=== PATIENT | female | born 1955 | race Caucasian/White ===

== ENCOUNTER → 2017-11-08 10:18 | Outpatient (CLI) | payer OTHER, SELFPAY ==
[2017-11-08 10:58] LABS: Add Manual Diff / Slide Review NO; Basophils Percent Auto 0.7 % (0-2); Eosinophils Percent Auto 8.1 % (2-4); Hematocrit 38.5 % (36-46); Hemoglobin 13.1 g/dL (12.0-16.0); Lymphocytes Percent Auto 28.5 % (25-40); Mean Corpuscular HGB Conc 34.1 % (30-36); Mean Corpuscular Hemoglobin 28.9 PG (26-34); Mean Corpuscular Volume 84.9 fL (80-100); Neutrophils Absolute Auto 3900 /uL (3000-5900); Neutrophils Percent Auto 54.7 % (50-75); Platelet Count 290 X10^3/uL (150-400); Red Blood Cell Count 4.53 X10^6/uL (4.0-5.2); Red Cell Distribution Width 13.8 % (11.6-14.8); White Blood Cell Count 7.1 X10^3/uL (4.5-11.0)
[2017-11-08 11:19] LABS: Alanine Aminotransferase 33 IU/L (9-52); Albumin 4.4 g/dL (3.5-5.0); Albumin Globulin Ratio 1.4 (1.0-2.8); Alkaline Phosphatase 74 U/L (38-126); Aspartate Aminotransferase 33 IU/L (14-36); Bilirubin Total 0.5 mg/dL (0.2-1.3); Blood Urea Nitrogen 12 mg/dL (7-17); Calcium 9.7 mg/dL (8.4-10.2); Carbon Dioxide 30 mmol/L (22-32); Chloride 102 mmol/L (98-107); Cholesterol 195 mg/dL (140-199); Estimated Glomerular Filt Rate > 60.0 mL/min (>60); Globulin 3.1 g/dL (1.7-4.1); Glucose 99 mg/dL (80-110); HDL Cholesterol 79 mg/dL (40-60); HEMOLYSIS < 15 (0-50); LDL Cholesterol Calculated 104 mg/dL (<100); Potassium 3.8 mmol/L (3.4-5.1); Sodium 142 mmol/L (137-145); Total Protein 7.5 g/dL (6.3-8.2); Triglycerides 58 mg/dL (35-150)
[2017-11-08 11:31] LABS: Free T3, Triiodothyronine Free 4.57 pg/mL (2.77-5.27)
[2017-11-08 11:45] LABS: Thyroid Stimulating Hormone 2.32 uIU/mL (0.47-4.68)
[2017-11-08 12:02] LABS: Vitamin B12 > 1000 pg/mL (239-931)
== END ==
PROVIDERS: Family Provider Family Medicine; PCP Family Medicine; Visit Provider Family Medicine
DX: Z00.00 Encounter for general adult medical examination without abnormal findings (principal); E03.9 Hypothyroidism, unspecified; E04.1 Nontoxic single thyroid nodule; G35 Multiple sclerosis
CPT/HCPCS: 36415; 80053; 80061; 82306; 82607; 84439; 84443; 84481; 85025

== ENCOUNTER → 2017-12-06 11:38 | Outpatient (CLI) | payer OTHER, SELFPAY ==
--- NOTE | 2017-12-06 11:41 | DI.MG.S_ITS ---
BILATERAL DIGITAL SCREENING MAMMOGRAM 3D/2D WITH CAD: 12/06/2017 CLINICAL: Routine screening. Family history of breast cancer. Comparison is made to exams dated: 08/07/2016 mammogram, 07/26/2015 mammogram, and 12/04/2013 [facility]. The tissue of both breasts is predominantly fatty. Current study was also evaluated with a Computer Aided Detection (CAD) system. No significant masses, calcifications, or other findings are seen in either breast. There has been no significant interval change. IMPRESSION: NEGATIVE There is no mammographic evidence of malignancy. A 1 year screening mammogram is recommended. This exam was interpreted at Station ID: [id number]. NOTE: For mammograms, a report in lay terms will be sent to the patient. Approximately 15% of breast malignancies will not be visualized mammographically. In the management of a palpable breast mass, a negative mammogram must not discourage biopsy of a clinically suspicious lesion. Electronically Signed By: Greer vallecillo/pio:12/06/2017 15:21:25 letter sent: Normal Exam ACR BI-RADS Category 1: Negative 3341F
--- NOTE | 2017-12-06 11:41 | DI.US.S_ITS ---
PROCEDURE: US THYROID INDICATIONS: thyroid nodule, follow up TECHNIQUE: Real-time scanning was performed of the thyroid gland, with image documentation. COMPARISON: [facility], [place], THYROID, 07/26/2015, 16:24. FINDINGS: Right: Thyroid lobe measures 5.1 x 3.0 x 2.7 cm, and is homogeneous in echotexture. Left: Thyroid lobe measures 3.1 x 0.6 x 0.6 cm, and is homogenous in echotexture. Isthmus: 1.0 mm thick. Nodule number: 1 Location: Right thyroid Size: Unchanged in size measuring 3.1 x 2.8 x 2.5 cm. Composition: Predominantly cystic Echogenicity: Hypoechoic Shape: wider than tall. Margins: Smooth Echogenic foci: None Total points: 3 ACR TI-RADS category: Mildly suspicious IMPRESSION: No change in appearance of mildly suspicious right inferior thyroid nodule. ACR TI-RADS definitions and recommendations: TI-RADS 1 (benign): 0 points. FNA not needed. TI-RADS 2 (not suspicious): 2 points. FNA not needed. TI-RADS 3 (mildly suspicious): 3 points. * FNA if 2.5 cm or larger, follow up if 1.5 cm or larger (at 1, 3, and 5 years). TI-RADS 4 (moderately suspicious): 4-6 points. * FNA if 1.5 cm or larger, follow up if 1 cm or larger (at 1, 2, 3, and 5 years). TI-RADS 5 (highly suspicious): 7 points or more. * FNA if 1 cm or larger, follow up if 0.5 cm or larger (every year for 5 years). Dictated by: Alvarez TAPIA Interpreted: Sunny Kessler MD on 12/06/2017 at 12:57 Approved by: Sunny Kessler M.D. on 12/06/2017 at 13:32
--- NOTE | 2017-12-06 11:48 | DI.CT.S_ITS ---
PROCEDURE: CT CHEST WO CON INDICATIONS: 6mm lung nodule TECHNIQUE: Noncontrast 2.0-2.5 mm thick sections acquired from the pulmonary apices to the posterior costophrenic angles. 7 mm thick coronal and sagittal MIP reformats were then acquired. A low radiation dose technique was utilized. COMPARISON: [facility], , CT THORAX WITH CONTRAST, 04/22/2003, 10:50. [facility], , THYROID, 03/16/2011, 16:07. [facility], , THYROID, 11/20/2013, 14:50. [facility], [place], THYROID, 07/26/2015, 16:24. FINDINGS: Image quality: Diagnostic, given the low radiation dose technique. Lungs and pleura: There is a 6 mm in diameter nodule in the posterior aspect of the left lower lobe (series 2, image 46) which is not significantly changed in size compared to prior examination dated 04/22/2003. Mediastinum: Heart size is normal. No pericardial effusion. No mediastinal adenopathy by size criteria. Thoracic aorta and central pulmonary arteries are normal in size. Esophagus is normal in caliber. No hiatal hernia. Bones and chest wall: No suspicious bony lesions. No vertebral body compression fractures. Spine degenerative disc disease and facet arthropathy. No axillary or supraclavicular adenopathy by size criteria. Thyroid gland contains a 2.4 cm in maximum diameter hypoattenuating nodule in the right thyroid which is not significantly changed compared to prior thyroid ultrasounds.. Abdomen: Visualized upper abdomen solid organs and bowel loops appear normal in the absence of contrast. IMPRESSION: 1. 6 mm nodule in the left lower lobe not significantly changed compared to prior CT scan obtained 04/22/2003. 2. Large right thyroid nodule not significantly changed compared to prior thyroid ultrasounds. Fleischner Society criteria for SOLID lung nodule followup. Nodule size (mm)Low-risk patientHigh-risk patient<6 (single or multiple)No routine followup.Optional CT at 12 months. 6-8 (single or multiple)CT at 6-12 months, then optional CT at 18-24 mo.CT at 6-12 months, then CT at 18-24 months. >8 (single)CT at 3 months, PET-CT, or biopsy. Same as for low-risk pts. >8 (multiple)CT at 3-6 months, then optional CT at 18-24 mo.CT at 3-6 months, then CT at 18-24 months. Recommendations do not apply to lung cancer screening, patients with immunosuppression, or patients with known primary cancer. Dictated by: Gabriela Waters MD, PhD on 12/06/2017 at 12:41 Approved by: Gabriela Waters MD, PhD on 12/06/2017 at 12:48
== END ==
PROVIDERS: Family Provider Family Medicine; PCP Family Medicine; Visit Provider Family Medicine
DX: Z12.31 Encounter for screening mammogram for malignant neoplasm of breast (principal); Z80.3 Family history of malignant neoplasm of breast; R91.1 Solitary pulmonary nodule; E04.1 Nontoxic single thyroid nodule
CPT/HCPCS: 71250; 76536; 77063; 77067

== ENCOUNTER → 2018-01-11 12:34 | Outpatient (CLI) | payer OTHER, SELFPAY ==
[2018-01-11 14:05] LABS: Free T3, Triiodothyronine Free 2.96 pg/mL (2.77-5.27); Free T4, Direct Thyroxine 0.69 ng/dL (0.78-2.19)
[2018-01-11 14:19] LABS: Thyroid Stimulating Hormone 2.84 uIU/mL (0.47-4.68)
[2018-01-14 15:54] LABS: Thyroid Peroxidase Antibodies 2 IU/mL (< 9)
[2018-01-18 13:08] LABS: Triiodothyronine T3 Reverse 8 ng/dL (8-25)
== END ==
PROVIDERS: Visit Provider Naturopath
DX: E03.9 Hypothyroidism, unspecified (principal)
CPT/HCPCS: 36415; 84439; 84443; 84481; 84482; 86376

== ENCOUNTER → 2018-10-25 08:47 | Outpatient (CLI) | payer OTHER, SELFPAY ==
[2018-10-25 09:14] LABS: Alanine Aminotransferase 24 IU/L (9-52); Albumin 4.4 g/dL (3.5-5.0); Albumin Globulin Ratio 1.6 (1.0-2.8); Alkaline Phosphatase 67 U/L (38-126); Aspartate Aminotransferase 42 IU/L (14-36); Bilirubin Total 0.6 mg/dL (0.2-1.3); Blood Urea Nitrogen 12 mg/dL (7-17); Calcium 9.6 mg/dL (8.4-10.2); Carbon Dioxide 28 mmol/L (22-32); Chloride 106 mmol/L (98-107); Cholesterol 212 mg/dL (140-199); Estimated Glomerular Filt Rate > 60.0 mL/min (>60); Globulin 2.8 g/dL (1.7-4.1); Glucose 91 mg/dL (80-110); HDL Cholesterol 84 mg/dL (40-60); HEMOLYSIS < 15 (0-50); LDL Cholesterol Calculated 111 mg/dL (<100); Potassium 4.4 mmol/L (3.4-5.1); Sodium 141 mmol/L (137-145); Total Protein 7.2 g/dL (6.3-8.2); Triglycerides 84 mg/dL (35-150)
[2018-10-25 09:22] LABS: Add Manual Diff / Slide Review NO; Basophils Absolute Auto 0 /uL (0-100); Basophils Percent Auto 0.8 % (0-2); Eosinophils Absolute Auto 400 /uL (0-450); Eosinophils Percent Auto 7.5 % (2-4); Hematocrit 41.1 % (36-46); Hemoglobin 13.7 g/dL (12.0-16.0); Lymphocytes Absolute Auto 2200 /uL (1100-4500); Lymphocytes Percent Auto 40.2 % (25-40); Mean Corpuscular HGB Conc 33.3 % (30-36); Mean Corpuscular Hemoglobin 27.7 PG (26-34); Mean Corpuscular Volume 83.3 fL (80-100); Monocytes Absolute Auto 500 /uL (0-900); Monocytes Percent Auto 8.6 % (3-14); Neutrophils Absolute Auto 2300 /uL (1500-7000); Neutrophils Percent Auto 42.9 % (50-75); Platelet Count 283 X10^3/uL (150-400); Red Blood Cell Count 4.93 X10^6/uL (4.0-5.2); White Blood Cell Count 5.4 X10^3/uL (4.5-11.0)
[2018-10-25 10:33] LABS: Free T3, Triiodothyronine Free 3.36 pg/mL (2.77-5.27); Free T4, Direct Thyroxine 0.68 ng/dL (0.78-2.19); Thyroid Stimulating Hormone 2.06 uIU/mL (0.47-4.68)
== END ==
PROVIDERS: PCP Naturopath; Visit Provider Naturopath
DX: Z00.00 Encounter for general adult medical examination without abnormal findings (principal); G35 Multiple sclerosis; E03.9 Hypothyroidism, unspecified
CPT/HCPCS: 36415; 80053; 80061; 84439; 84443; 84481; 85025

== ENCOUNTER → 2018-12-18 11:38 | Outpatient (CLI) | payer OTHER, SELFPAY ==
--- NOTE | 2018-12-18 | DI.MG.S_ITS ---
BILATERAL DIGITAL SCREENING MAMMOGRAM 3D/2D WITH CAD: 12/18/2018 CLINICAL: Routine screening. Family history of breast cancer. Comparison is made to exams dated: 12/06/2017 mammogram, 04/05/2017 mammogram, and 08/07/2016 mammogram - [facility]. There are scattered fibroglandular elements in both breasts. Current study was also evaluated with a Computer Aided Detection (CAD) system. No significant masses, calcifications, or other findings are seen in either breast. There has been no significant interval change. IMPRESSION: NEGATIVE There is no mammographic evidence of malignancy. A 1 year screening mammogram is recommended. This exam was interpreted at Station ID: [id number]. NOTE: For mammograms, a report in lay terms will be sent to the patient. Approximately 15% of breast malignancies will not be visualized mammographically. In the management of a palpable breast mass, a negative mammogram must not discourage biopsy of a clinically suspicious lesion. Electronically Signed By: Joshua holt/pio:12/18/2018 12:46:38 letter sent: Normal Exam ACR BI-RADS Category 1: Negative 3341F
== END ==
PROVIDERS: PCP Naturopath; Visit Provider Naturopath
DX: Z12.31 Encounter for screening mammogram for malignant neoplasm of breast (principal); Z80.3 Family history of malignant neoplasm of breast
CPT/HCPCS: 77063; 77067

== ENCOUNTER → 2018-12-31 07:21 | Outpatient (CLI) | payer OTHER, SELFPAY ==
[2018-12-31 09:23] LABS: Free T3, Triiodothyronine Free 3.05 pg/mL (2.77-5.27)
[2018-12-31 09:24] LABS: Free T4, Direct Thyroxine 0.81 ng/dL (0.78-2.19)
[2018-12-31 09:37] LABS: Thyroid Stimulating Hormone 4.33 uIU/mL (0.47-4.68)
[2019-01-03 14:24] LABS: Triiodothyronine T3 Reverse 9 ng/dL (8-25)
== END ==
PROVIDERS: PCP Naturopath; Visit Provider Naturopath
DX: E03.9 Hypothyroidism, unspecified (principal)
CPT/HCPCS: 36415; 84439; 84443; 84481; 84482

== ENCOUNTER → 2019-04-16 14:59 | Outpatient (CLI) | payer OTHER, SELFPAY ==
[2019-04-16 17:16] LABS: Free T3, Triiodothyronine Free 3.25 pg/mL (2.77-5.27); Free T4, Direct Thyroxine 0.78 ng/dL (0.78-2.19)
[2019-04-16 17:29] LABS: Thyroid Stimulating Hormone 0.51 uIU/mL (0.47-4.68)
[2019-04-20 14:40] LABS: Triiodothyronine T3 Reverse 7 ng/dL (8-25)
== END ==
PROVIDERS: PCP Naturopath; Visit Provider Naturopath
DX: E03.9 Hypothyroidism, unspecified (principal)
CPT/HCPCS: 36415; 84439; 84443; 84481; 84482

== ENCOUNTER 2019-04-23 09:45 | Outpatient (RCR) | payer OTHER, SELFPAY ==
--- NOTE | 2019-02-19 16:09 | PT.OIE ---
Current Diagnoses Uterovaginal prolapse, unspecified (02/19/19) Past Medical History (Last Reviewed 11/08/17 @ 17:54 by Gayle Phillips MD) Anemia (Chronic 1979) Chicken pox (Resolved) GERD (gastroesophageal reflux disease) (Chronic ~2000) Gluten enteropathy (Chronic ~2011) Hayfever (Chronic ~1967) IBS (irritable bowel syndrome) (Chronic 1982) Multiple sclerosis (Chronic 2007) Relapsing remitting multiple sclerosis (Chronic) Rubella (Resolved ~1967) Thyroid nodule (Chronic) Past Surgical History (Last Reviewed 11/08/17 @ 17:54 by Gayle Phillips MD) Anesthesia (Resolved) History of cryosurgery (Resolved ~1986) Status post bunionectomy (Resolved ~1965) Status post dilation and curettage (Resolved ~1999) Status post laparoscopy (Resolved ~1984) Visit Care Team Role Provider Type Juani Gamboa ND Attending Provider Non-Staff Primary Care Provider Specialty: Naturopathy Address: [address] [place] [address] Email: Physical Therapy Initial Evaluation PT-OP-A Visit Information Start: 02/16/19 16:09 Freq: Status: Active Protocol: Document 02/19/19 10:38 LRN (Rec: 02/19/19 16:21 LRN [id number]) Out-Patient Physical Therapy Visit Information Visit Information Visit Type Initial Evaluation Visit Start Time 10:38 Visit Stop Time 11:43 Total Visit Minutes 65 Visit Number 1 Number of THIRD STEEL POURER Visits 0 Evaluation Information Evaluation Date 02/19/19 Precautions Precautions Multiple Sclerosis Neuropathy of feet Hypothyroid Chronic back, neck pain PT-OP-B Current Condition Start: 02/16/19 16:09 Freq: Status: Active Protocol: Document 02/19/19 10:38 LRN (Rec: 02/19/19 16:21 LRN [id number]) Current Condition History of Current Condition Onset Date 2 yrs ago. Current Complaints Feeling of pressure in PF and feeling of sitting on something. History of Current Condition Pt reports in addition to feeling of pressure in the PF she sometimes has throbbing in the rectum. She reports having constipation. When standing she feels like she is stepping on crumpled paper, but to touch her feet feels normal. She sometimes also feels like she is slipping on ice when she walks. She has variable weakness in her legs due to multiple sclerosis. Developmental History Developmental History Insidious onset. Treatment Goals Patient/Caregiver Goals Pt goal is to learn what to do to prevent the feeling of sitting on a bulge and to alleviate the sensation. Prior Functional Status Baseline Function- ADL's Independent Baseline Function- Mobility Independent Baseline Function- Other 2 yrs ago able to sit without feeling a bulge. Current Functional Impairments (Reported) Functional Limitations- ADL's Sitting, feeling of sitting on something. Personal Factors Other Personal Factors That May Effect Multiple Sclerosis Therapy/Recovery Neuropathy of feet Hypothyroid Chronic back, neck pain PT-OP-C Subjective Start: 02/16/19 16:09 Freq: Status: Active Protocol: Document 02/19/19 10:38 LRN (Rec: 02/24/19 17:59 LRN [id number]) Patient Questionnaires Pelvic Pain and Urgency/Frequency Patient Symptom Scale Pelvic Pain Score 1 PT-OP-I Pelvic Floor Start: 02/19/19 13:20 Freq: Status: Active Protocol: Document 02/19/19 10:38 LRN (Rec: 02/19/19 16:21 LRN [id number]) Pelvic Floor Assessment Urine Pelvic Floor Surgery No Urinary Symptoms Prolapse,Incomplete Emptying, Falling Out Feeling/Heavy Other Urinary Symptoms Voiding 6-10 times per day. No nighttime voiding. Slow or hesitant urinary stream. Leaks Per Day 0 Voiding Frequency 6-10 Nocturia 0 Bowel Bowel Surgery No Bowel Symptoms Constipation Prolapse Cystocele Grade 2 Urethrocele Grade 1 Rectocele Grade 1 Perineal Descent Resting Present Bearing Present Contraction Ability Manual Muscle Testing Left 3 Manual Muscle Testing Right 3 Manual Muscle Testing Anterior 3 Manual Muscle Testing Posterior 4 Muscle Endurance (Seconds) 3 Number of Quick Contractions In 10 3 Seconds Comments Pelvic Floor Comments Pt is not able to perform a PF contraction independently from her accessory muscles; therefore I was not able to obtain a true PF contraction assessment. Mild lift felt with left and right sidewalls Pressure felt with anterior PF Strong lift felt with posterior PF PT-OP-J Posture/Palpation/Skin Start: 02/16/19 16:09 Freq: Status: Active Protocol: Document 02/19/19 10:38 LRN (Rec: 02/19/19 16:21 LRN [id number]) Posture Evaluation Comments Posture Comments Standing: Valgus leg L>R, ER of R foot, Lower L iliac crest , C-curve of lower thoracic/ upper lumbar spine, and low R shoulder, mild forward head, mild dowager, mild anterior tilt of pelvis. Atrophy noted in L hip and leg. PT-OP-Q Treatments Start: 02/16/19 16:09 Freq: Status: Active Protocol: Document 02/19/19 10:38 LRN (Rec: 02/19/19 16:27 LRN [id number]) Self-Care/Home Management Treatment Education Patient Education Home Exercise Program Other Education Pt educated in bladder diary to complete 7 consecutive days . Pt educated in pelvic anatomy. Activities Self-Care/Home Management Activities Pt educated in Kegel ex to be practiced in isolation of substitute muscles. PT-OP-T Assessment and Plan Start: 02/16/19 16:09 Freq: Status: Active Protocol: Document 02/19/19 10:38 LRN (Rec: 02/19/19 16:21 LRN [id number]) Physical Therapy Assessment Rehab Potential Rehabilitation Potential Good Evaluation Complexity Number of Personal Factors/Comorbidities 3 or More Number of Body Systems Impaired 4 or More Clinical Presentation at Evaluation Evolving Impairments Impairments Posture,ROM,Strength,Transfers Goals Three Impairment Decreased PF/core stability Short Term Goal (STG) Pt will be educated and able to perform proper hip hinging with body mechanics to improve core stability. 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 Short Term Goal (STG) Pt will be able to perform a PF contraction without assist of substitute muscles to improve PF strength. STG Duration Supervisor [employer] Goal (LTG) Pt will be able to improve PF strength in order to prevent a feeling of sitting on a bulge . LTG Duration 04/20/19 One Impairment Pt lacks appropriate self care HEP [facility] Goal (LTG) Pt will be independent in a self care HEP of PF strengthening, hip ROM/ strengthening, core strengthening. LTG Duration 04/20/19 Assessment Summary Assessment Pt appears to have a grade 2 cystocele, grade 1 rectocele and not a significant utero prolapse, although it is minimally palpable with digital vaginal assessment. The pt is most likely feeling heaviness and pressure on sitting due to her cystocele. Constipation is probably a factor in her prolapse onset as well as overuse of her substitute muscles. She has a palpable PF contraction but uses all her substitute muscles to obtain a contraction; therefore in isolation her PF muscle strength may be decreased. She has good trunk mobility and is mildly asymmetrical in her hip mobility. She does have notable L hip weakness. The pt will benefit from skilled physical therapy to improve PF strength in isolation of substitute muscles, and for pt education in PF anatomy, proper bowel care, proper bladder care, self care, and placement on a HEP for proper PF self care. Physical Therapy Plan Frequency and Duration Frequency of Treatment 1x/Week Plan of Care Start Date 02/19/19 Plan of Care End Date 04/20/19 Therapeutic Interventions Therapeutic Interventions Home Exercise Program,Joint Mobilizations,Neuromuscular Re -education,Patient/Caregiver Education,Self-Care/Home Management,Soft Tissue Mobilization,Therapeutic Exercises Modalities Electric Stimulation Next Visit Focus/Plan Next Note Type Treatment Note Next Visit Plan Review Bladder Diary and discuss fluid/bowel changes as needed. Initiate training for PF contraction in isolation of substitute muscles. Assess TA contraction. As able, progress to HEP of hip ROM & strengthening ex's. Hold EMG biofeedback until able to assess pt's PF strength in isolation. If weakness is palpable in isolation biofeedback may be needed for proper PF contraction awareness training and strengthening.
--- NOTE | 2019-03-05 11:52 | PT.OTN ---
Current Diagnoses Uterovaginal prolapse, unspecified (03/05/19) Physical Therapy Treatment Note PT-OP-A Visit Information Start: 02/16/19 16:09 Freq: Status: Active Protocol: Document 03/05/19 10:36 LRN (Rec: 03/05/19 11:21 LRN [id number]) Out-Patient Physical Therapy Visit Information Visit Information Visit Type Treatment Note Visit Start Time 10:36 Visit Stop Time 11:15 Total Visit Minutes 39 Visit Number 2 Number of ONLINE BANKING SPECIALIST Visits 0 Evaluation Information Evaluation Date 02/19/19 Precautions Precautions Multiple Sclerosis Neuropathy of feet Hypothyroid Chronic back, neck pain PT-OP-B Current Condition Start: 02/16/19 16:09 Freq: Status: Active Protocol: Document 02/19/19 10:38 LRN (Rec: 02/19/19 16:21 LRN [id number]) Current Condition History of Current Condition Onset Date 2 yrs ago. Current Complaints Feeling of pressure in PF and feeling of sitting on something. History of Current Condition Pt reports in addition to feeling of pressure in the PF she sometimes has throbbing in the rectum. She reports having constipation. When standing she feels like she is stepping on crumpled paper, but to touch her feet feels normal. She sometimes also feels like she is slipping on ice when she walks. She has variable weakness in her legs due to multiple sclerosis. Developmental History Developmental History Insidious onset. Treatment Goals Patient/Caregiver Goals Pt goal is to learn what to do to prevent the feeling of sitting on a bulge and to alleviate the sensation. Prior Functional Status Baseline Function- ADL's Independent Baseline Function- Mobility Independent Baseline Function- Other 2 yrs ago able to sit without feeling a bulge. Current Functional Impairments (Reported) Functional Limitations- ADL's Sitting, feeling of sitting on something. Personal Factors Other Personal Factors That May Effect Multiple Sclerosis Therapy/Recovery Neuropathy of feet Hypothyroid Chronic back, neck pain PT-OP-C Subjective Start: 02/16/19 16:09 Freq: Status: Active Protocol: Document 03/05/19 10:36 LRN (Rec: 03/05/19 11:21 LRN [id number]) OP-PT Subjective Patient Comments Patient Comments Didn't grab all the papers of the bladder diary. Has questions regarding doing the diary. Thinks she can isolate her PF muscle and while on toilet thinks she was able to feel her PF. PT-OP-I Pelvic Floor Start: 02/19/19 13:20 Freq: Status: Active Protocol: Document 02/19/19 10:38 LRN (Rec: 02/19/19 16:21 LRN [id number]) Pelvic Floor Assessment Urine Pelvic Floor Surgery No Urinary Symptoms Prolapse,Incomplete Emptying, Falling Out Feeling/Heavy Other Urinary Symptoms Voiding 6-10 times per day. No nighttime voiding. Slow or hesitant urinary stream. Leaks Per Day 0 Voiding Frequency 6-10 Nocturia 0 Bowel Bowel Surgery No Bowel Symptoms Constipation Prolapse Cystocele Grade 2 Urethrocele Grade 1 Rectocele Grade 1 Perineal Descent Resting Present Bearing Present Contraction Ability Manual Muscle Testing Left 3 Manual Muscle Testing Right 3 Manual Muscle Testing Anterior 3 Manual Muscle Testing Posterior 4 Muscle Endurance (Seconds) 3 Number of Quick Contractions In 10 3 Seconds Comments Pelvic Floor Comments Pt is not able to perform a PF contraction independently from her accessory muscles; therefore I was not able to obtain a true PF contraction assessment. Mild lift felt with left and right sidewalls Pressure felt with anterior PF Strong lift felt with posterior PF PT-OP-J Posture/Palpation/Skin Start: 02/16/19 16:09 Freq: Status: Active Protocol: Document 02/19/19 10:38 LRN (Rec: 02/19/19 16:21 LRN [id number]) Posture Evaluation Comments Posture Comments Standing: Valgus leg L>R, ER of R foot, Lower L iliac crest , C-curve of lower thoracic/ upper lumbar spine, and low R shoulder, mild forward head, mild dowager, mild anterior tilt of pelvis. Atrophy noted in L hip and leg. PT-OP-Q Treatments Start: 02/16/19 16:09 Freq: Status: Active Protocol: Document 03/05/19 10:36 LRN (Rec: 03/05/19 11:21 LRN [id number]) Self-Care/Home Management Treatment Education Other Education Discussed at length each subject of: Education: effects of prolapse on voiding amounts and schedule, effects of Valsa maneuver on pelvic organs. Education: in constipation, types of BM and importance of fluid intake, how to properly perform a BM w/breathing. Education: in Bladder irritants, discussed intake. Activities Self-Care/Home Management Activities Reviewed and Discussed at length pt's partial Bladder Diary. Recommendations made to adjust fluid intake to 1/2 body weight in oz's, discussed intake/output fluids, what fluids, concentration of urine , and times between voiding and voiding times. I/S pt in use of squatty potty position to improve ease of defecation and breathing. Handouts issued and reviewed for bladder irritants, pelvic organ anatomy. PT-OP-T Assessment and Plan Start: 02/16/19 16:09 Freq: Status: Active Protocol: Document 03/05/19 10:36 LRN (Rec: 03/05/19 11:21 LRN [id number]) Physical Therapy Assessment Goals Three Impairment Decreased PF/core stability Short Term Goal (STG) Pt will be educated and able to perform proper hip hinging with body mechanics to improve core stability. STG Duration 03/22/19 [facility] Goal (LTG) Pt will be educated in proper bladder and bowel care to minimize LTG Duration 04/20/19 (03/05/19: GOAL MET) Two Impairment Weakness of the PF with a feeling of heaviness and sitting on bulge. Short Term Goal (STG) Pt will be able to perform a PF contraction without assist of substitute muscles to improve PF strength. STG Duration [facility] Goal (LTG) Pt will be able to improve PF strength in order to prevent a feeling of sitting on a bulge . 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 LTG Duration 04/20/19 (03/05/19: PF ex initiated) Assessment Summary Assessment Pt work schedule may be a hinderance in the pt being able to adhere to fluid intake and voiding needs; therefore limit her ability to void regularly and have BM's that will not affect her pelvic organ positioning. The pt appears aware of the importance and need to make changes. Pt long voiding times but regular times between voids (every 2-3 hours ) may indicate a kinked urethra. Additionally, she reports typically urinating small to long voids after having a BM indicating possible blocking of urine by stool. Pt needs PF strengthening to improve pelvic organ positioning, improve fluid intake to minimize constipation, and improve pt awareness of when urinary voiding is needed. Physical Therapy Plan Frequency and Duration Frequency of Treatment 1x/Week Plan of Care Start Date 02/19/19 Plan of Care End Date 04/20/19 Therapeutic Interventions Therapeutic Interventions Home Exercise Program,Joint Mobilizations,Neuromuscular Re -education,Patient/Caregiver Education,Self-Care/Home Management,Soft Tissue Mobilization,Therapeutic Exercises Modalities Electric Stimulation Next Visit Focus/Plan Next Note Type Treatment Note Next Visit Plan Review Bladder Diary for urine concentration, changes in voiding schedule with increased fluid intake (goal of 91 oz's of water daily), discuss fluid/bowel changes as needed. Assess TA contraction. Initiate training for PF contraction in isolation of substitute muscles. HEP of hip ROM & strengthening ex's. Hold EMG biofeedback until able to assess pt's PF strength in isolation. If weakness is palpable in isolation biofeedback start proper PF contraction awareness training and strengthening.
--- NOTE | 2019-03-12 11:45 | PT.OTN ---
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 Current Complaints Feeling of pressure in PF and feeling of sitting on something. History of Current Condition Pt reports in addition to feeling of pressure in the PF she sometimes has throbbing in the rectum. She reports having constipation. When standing she feels like she is stepping on crumpled paper, but to touch her feet feels normal. She sometimes also feels like she is slipping on ice when she walks. She has variable weakness in her legs due to multiple sclerosis. Developmental History Developmental History Insidious onset. Treatment Goals Patient/Caregiver Goals Pt goal is to learn what to do to prevent the feeling of sitting on a bulge and to alleviate the sensation. Prior Functional Status Baseline Function- ADL's Independent Baseline Function- Mobility Independent Baseline Function- Other 2 yrs ago able to sit without feeling a bulge. Current Functional Impairments (Reported) Functional Limitations- ADL's Sitting, feeling of sitting on something. Personal Factors Other Personal Factors That May Effect Multiple Sclerosis Therapy/Recovery Neuropathy of feet Hypothyroid Chronic back, neck pain PT-OP-C Subjective Start: 02/16/19 16:09 Freq: Status: Active Protocol: Document 03/12/19 10:35 LRN (Rec: 03/12/19 11:41 LRN [id number]) OP-PT Subjective Patient Comments Patient Comments Did bladder diary over weekend and made a point of adding more fluids. Trying to add fluids during work, but not able to take time to void. Urination times are 20 sec's. PT-OP-I Pelvic Floor Start: 02/19/19 13:20 Freq: Status: Active Protocol: Document 03/12/19 10:35 LRN (Rec: 03/12/19 11:41 LRN [id number]) Pelvic Floor Assessment Pelvic Clock Pelvic Clock Other Tightness mildly at Pelvic Clock 3. Pt able to relax PF on command although pt notes she must concentrate to relax. PT-OP-J Posture/Palpation/Skin Start: 02/16/19 16:09 Freq: Status: Active Protocol: Document 02/19/19 10:38 LRN (Rec: 02/19/19 16:21 LRN [id number]) Posture Evaluation Comments Posture Comments Standing: Valgus leg L>R, ER of R foot, Lower L iliac crest , C-curve of lower thoracic/ upper lumbar spine, and low R shoulder, mild forward head, mild dowager, mild anterior tilt of pelvis. Atrophy noted in L hip and leg. PT-OP-Q Treatments Start: 02/16/19 16:09 Freq: Status: Active Protocol: Document 03/12/19 10:35 LRN (Rec: 03/12/19 11:41 LRN [id number]) Therapeutic Exercises Supine Exercises PF contract/relax Supine Exercise Name Contract/Relax Comments Pt able to contract/relax PF, but requires concentration to relax. Self-Care/Home Management Treatment Education Other Education Discussed at length pts bladder diary, fluid in/out amounts, timing and home vs work situation. Explained and educated pt in way to alter days to improve fluid input/ output timing to avoid urgency , discussed options of effects of caffeine drinking, and relaxing for voiding. Activities Self-Care/Home Management Activities Pt to monitor fluid in/out while at work for times to void. Pt to avoid delaying voiding for > 4hrs if possible . Discussed possible alternatives to use of caffeine in mornings (ex: tea, coffee alternatives, high quality peppermint EO aromatherapy). Pt I/S in use of deep breathing for relaxation of PF during voiding. Pt to try voiding prior to entering work environment and to relax during voiding. PT-OP-T Assessment and Plan Start: 02/16/19 16:09 Freq: Status: Active Protocol: Document 03/12/19 10:35 LRN (Rec: 03/12/19 11:41 LRN [id number]) Physical Therapy Assessment Assessment Summary Assessment Pt has large voids on first waking and as expected increased voiding after drinking coffee. The pt appears to be avoiding urination due to activities during her day (work), but during the weekend was able to drink adequate amounts of fluid and was able to void 3-4 hours during her day. We discussed how her urgency at work may be due to inablility to attend to her voiding needs due to work conditions and that she may need want to try and discuss this with someone at work to allow her to void within the 3-4 normal timeframe. Per palpation the pt doesn't appear to have tightness of her PF and is able to relax her PF with concentration. Further EMG assessment is needed. Physical Therapy Plan Frequency and Duration Frequency of Treatment 1x/Week Plan of Care Start Date 02/19/19 Plan of Care End Date 04/20/19 Next Visit Focus/Plan Next Note Type Treatment Note Next Visit Plan Check on changes in voiding schedule and impact of deep breathing with voiding has on voiding, continue to address fluid/bowel changes as needed. Assess TA contraction. Assess PF strength and ability to relax with EMG biofeedback (in isolation of substitute muscles). Initiate training for PF contraction in isolation of substitute muscles. HEP of hip ROM & strengthening ex's. Start proper PF contraction awareness training and strengthening.
--- NOTE | 2019-03-19 11:58 | PT.OTN ---
Current Diagnoses Uterovaginal prolapse, unspecified (03/19/19) Physical Therapy Treatment Note PT-OP-A Visit Information Start: 02/16/19 16:09 Freq: Status: Active Protocol: Document 03/19/19 10:34 LRN (Rec: 03/19/19 11:55 LRN [id number]) Out-Patient Physical Therapy Visit Information Visit Information Visit Type Treatment Note Visit Start Time 10:34 Visit Stop Time 11:26 Total Visit Minutes 52 Visit Number 4 Number of [employer] FORMER Visits 0 Evaluation Information Evaluation Date 02/19/19 Precautions Precautions Multiple Sclerosis Neuropathy of feet Hypothyroid Chronic back, neck pain PT-OP-B Current Condition Start: 02/16/19 16:09 Freq: Status: Active Protocol: Document 02/19/19 10:38 LRN (Rec: 02/19/19 16:21 LRN [id number]) Current Condition History of Current Condition Onset Date 2 yrs ago. Current Complaints Feeling of pressure in PF and feeling of sitting on something. History of Current Condition Pt reports in addition to feeling of pressure in the PF she sometimes has throbbing in the rectum. She reports having constipation. When standing she feels like she is stepping on crumpled paper, but to touch her feet feels normal. She sometimes also feels like she is slipping on ice when she walks. She has variable weakness in her legs due to multiple sclerosis. Developmental History Developmental History Insidious onset. Treatment Goals Patient/Caregiver Goals Pt goal is to learn what to do to prevent the feeling of sitting on a bulge and to alleviate the sensation. Prior Functional Status Baseline Function- ADL's Independent Baseline Function- Mobility Independent Baseline Function- Other 2 yrs ago able to sit without feeling a bulge. Current Functional Impairments (Reported) Functional Limitations- ADL's Sitting, feeling of sitting on something. Personal Factors Other Personal Factors That May Effect Multiple Sclerosis Therapy/Recovery Neuropathy of feet Hypothyroid Chronic back, neck pain PT-OP-C Subjective Start: 02/16/19 16:09 Freq: Status: Active Protocol: Document 03/19/19 10:34 LRN (Rec: 03/19/19 11:55 LRN [id number]) OP-PT Subjective Patient Comments Patient Comments States she noticed no pressure 1 day. States she does calisthenics. Did bladder diary for past 3 days (working ). PT-OP-I Pelvic Floor Start: 02/19/19 13:20 Freq: Status: Active Protocol: Document 03/12/19 10:35 LRN (Rec: 03/12/19 11:41 LRN [id number]) Pelvic Floor Assessment Pelvic Clock Pelvic Clock Other Tightness mildly at Pelvic Clock 3. Pt able to relax PF on command although pt notes she must concentrate to relax. PT-OP-J Posture/Palpation/Skin Start: 02/16/19 16:09 Freq: Status: Active Protocol: Document 02/19/19 10:38 LRN (Rec: 02/19/19 16:21 LRN [id number]) Posture Evaluation Comments Posture Comments Standing: Valgus leg L>R, ER of R foot, Lower L iliac crest , C-curve of lower thoracic/ upper lumbar spine, and low R shoulder, mild forward head, mild dowager, mild anterior tilt of pelvis. Atrophy noted in L hip and leg. PT-OP-Q Treatments Start: 02/16/19 16:09 Freq: Status: Active Protocol: Document 03/19/19 10:34 LRN (Rec: 03/19/19 11:55 LRN [id number]) Therapeutic Exercises Supine Exercises Hip Flex/ER/IR Supine Exercise Name ROM & active Flex Comments PROM & MMT taken Hip AB/AD Supine Exercise Name Sliding legs in/out w/TA & breath work Reps/Minutes 5x Comments PROM Taken & Limited reps due to MS TA w/rolling Supine Exercise Name TA roll side to side, facilitating with ribeiro & Sh Side bilateral Reps/Minutes 5x each side Comments Limited reps due to MS TA contraction Supine Exercise Name TA, facilitating with Ribeiro & Shhh Reps/Minutes 10x each Prone Exercises Hip Extension Prone Exercise Name Hip Ext w/TA & breath work Reps/Minutes 5x Comments MMT & Limited reps due to MS. Sidelying Exercises Hip AB/AD Sidelying Exercise Name Hip AB/AD Side bilateral Comments MMT Sitting Exercises Sit to Stand Sitting Exercise Name TA & Exhale w/sit to stand, Pivot hips Reps/Minutes 10x Comments Limited reps due to MS Self-Care/Home Management Treatment Education Patient Education Posture Other Education Hip hinging Breathing with exercise Discussed appropriate auto TA contraction with activities. Activities Self-Care/Home Management Activities Issued & reviewed HEP: Pelvic Brace (different positions and activities) and progressive TA ex's (TA, heel slides & SLR). Extra time taken due to difficulties printing exercises. PT-OP-T Assessment and Plan Start: 02/16/19 16:09 Freq: Status: Active Protocol: Document 03/19/19 10:34 LRN (Rec: 03/19/19 11:55 LRN [id number]) Physical Therapy Assessment Goals Three Impairment Decreased PF/core stability Short Term Goal (STG) Pt will be educated and able to perform proper hip hinging with body mechanics to improve core stability. STG Duration 03/22/19 (03/19/19: GOAL MET ) Care Home Goal (LTG) Pt will be educated in proper bladder and bowel care to minimize LTG Duration 04/20/19 (03/05/19: GOAL MET) Two Impairment Weakness of the PF with a feeling of heaviness and sitting on bulge. Short Term Goal (STG) Pt will be able to perform a PF contraction without assist of substitute muscles to improve PF strength. STG Duration Care Home Goal (LTG) Pt will be able to improve PF strength in order to prevent a feeling of sitting on a bulge . LTG Duration 04/20/19 One Impairment Pt lacks appropriate self care HEP Interlocker Goal (LTG) Pt will be independent in a self care HEP of PF strengthening, hip ROM/ strengthening, core strengthening. LTG Duration 04/20/19 (03/19/19: Progressing) Assessment Summary Assessment Voiding times look good at every 2-3 hours at work and sometimes 4 hours. Pt demonstrates poor core stability in abdominals with TA contraction not automatically activating with regular activities (with Ribeiro, and Shhh). Pt able to perform TA with manual self cuing. Pt LLE weak due to MS. Pt not leaking, but shows area of poor pelvic stability due to weakness and mild decreased hip mobility. Pt ability to contract PF without substitute ms was not assessed today due to lack of time. Physical Therapy Plan Frequency and Duration Frequency of Treatment 1x/Week Plan of Care Start Date 02/19/19 Plan of Care End Date 04/20/19 Next Visit Focus/Plan Next Note Type Treatment Note Next Visit Plan Assess PF strength and ability to relax with EMG biofeedback (in isolation of substitute muscles). Initiate training for PF contraction in isolation of substitute muscles. Start HEP for hip mobility and issue handouts for HEP of hip ROM & strengthening ex's. Start proper PF contraction awareness training and strengthening.
--- NOTE | 2019-03-19 12:06 | PT.OTN ---
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 Current Complaints Feeling of pressure in PF and feeling of sitting on something. History of Current Condition Pt reports in addition to feeling of pressure in the PF she sometimes has throbbing in the rectum. She reports having constipation. When standing she feels like she is stepping on crumpled paper, but to touch her feet feels normal. She sometimes also feels like she is slipping on ice when she walks. She has variable weakness in her legs due to multiple sclerosis. Developmental History Developmental History Insidious onset. Treatment Goals Patient/Caregiver Goals Pt goal is to learn what to do to prevent the feeling of sitting on a bulge and to alleviate the sensation. Prior Functional Status Baseline Function- ADL's Independent Baseline Function- Mobility Independent Baseline Function- Other 2 yrs ago able to sit without feeling a bulge. Current Functional Impairments (Reported) Functional Limitations- ADL's Sitting, feeling of sitting on something. Personal Factors Other Personal Factors That May Effect Multiple Sclerosis Therapy/Recovery Neuropathy of feet Hypothyroid Chronic back, neck pain PT-OP-C Subjective Start: 02/16/19 16:09 Freq: Status: Active Protocol: Document 03/19/19 10:34 LRN (Rec: 03/19/19 11:55 LRN [id number]) OP-PT Subjective Patient Comments Patient Comments States she noticed no pressure 1 day. States she does calisthenics. Did bladder diary for past 3 days (working ). PT-OP-I Pelvic Floor Start: 02/19/19 13:20 Freq: Status: Active Protocol: Document 03/12/19 10:35 LRN (Rec: 03/12/19 11:41 LRN [id number]) Pelvic Floor Assessment Pelvic Clock Pelvic Clock Other Tightness mildly at Pelvic Clock 3. Pt able to relax PF on command although pt notes she must concentrate to relax. PT-OP-J Posture/Palpation/Skin Start: 02/16/19 16:09 Freq: Status: Active Protocol: Document 02/19/19 10:38 LRN (Rec: 02/19/19 16:21 LRN [id number]) Posture Evaluation Comments Posture Comments Standing: Valgus leg L>R, ER of R foot, Lower L iliac crest , C-curve of lower thoracic/ upper lumbar spine, and low R shoulder, mild forward head, mild dowager, mild anterior tilt of pelvis. Atrophy noted in L hip and leg. PT-OP-K Range of Motion Start: 02/16/19 16:09 Freq: Status: Active Protocol: Document 03/19/19 10:34 LRN (Rec: 03/19/19 12:06 LRN [id number]) Hip Goniometric Range of Motion Hip Right Passive Testing Position Supine Straight Leg Raise 90 Abduction 55 Internal Rotation 35 External Rotation 58 Left Passive Testing Position Supine Straight Leg Raise 90 Abduction 45 Internal Rotation 35 External Rotation 58 Hip ROM Limitations Comments Hip AB is 55 deg's right, 45 deg's left. PT-OP-M Strength Start: 02/16/19 16:09 Freq: Status: Active Protocol: Document 03/19/19 10:34 LRN (Rec: 03/19/19 12:06 LRN [id number]) Hip Strength Hip Manual Muscle Testing Right Comments R LE strength is 5/5 in all muscle groups. Left Flexion (L2) 2 Poor Extension (S1) 2- Poor- Abduction 2 Poor Adduction 1 Trace External Rotation 3 Fair Internal Rotation 4 Good PT-OP-Q Treatments Start: 02/16/19 16:09 Freq: Status: Active Protocol: Document 03/19/19 10:34 LRN (Rec: 03/19/19 11:55 LRN [id number]) Therapeutic Exercises Supine Exercises Hip Flex/ER/IR Supine Exercise Name ROM & active Flex Comments PROM & MMT taken Hip AB/AD Supine Exercise Name Sliding legs in/out w/TA & breath work Reps/Minutes 5x Comments PROM Taken & Limited reps due to MS TA w/rolling Supine Exercise Name TA roll side to side, facilitating with ribeiro & Sh Side bilateral Reps/Minutes 5x each side Comments Limited reps due to MS TA contraction Supine Exercise Name TA, facilitating with Ribeiro & Shhh Reps/Minutes 10x each Prone Exercises Hip Extension Prone Exercise Name Hip Ext w/TA & breath work Reps/Minutes 5x Comments MMT & Limited reps due to MS. Sidelying Exercises Hip AB/AD Sidelying Exercise Name Hip AB/AD Side bilateral Comments MMT Sitting Exercises Sit to Stand Sitting Exercise Name TA & Exhale w/sit to stand, Pivot hips Reps/Minutes 10x Comments Limited reps due to MS Self-Care/Home Management Treatment Education Patient Education Posture Other Education Hip hinging Breathing with exercise Discussed appropriate auto TA contraction with activities. Activities Self-Care/Home Management Activities Issued & reviewed HEP: Pelvic Brace (different positions and activities) and progressive TA ex's (TA, heel slides & SLR). Extra time taken due to difficulties printing exercises. PT-OP-T Assessment and Plan Start: 02/16/19 16:09 Freq: Status: Active Protocol: Document 03/19/19 10:34 LRN (Rec: 03/19/19 11:55 LRN [id number]) Physical Therapy Assessment Goals Three Impairment Decreased PF/core stability Short Term Goal (STG) Pt will be educated and able to perform proper hip hinging with body mechanics to improve core stability. STG Duration 03/22/19 (03/19/19: GOAL MET ) Shelter Goal (LTG) Pt will be educated in proper bladder and bowel care to minimize LTG Duration 04/20/19 (03/05/19: GOAL MET) Two Impairment Weakness of the PF with a feeling of heaviness and sitting on bulge. Short Term Goal (STG) Pt will be able to perform a PF contraction without assist of substitute muscles to improve PF strength. STG Duration Shelter Goal (LTG) Pt will be able to improve PF strength in order to prevent a feeling of sitting on a bulge . LTG Duration 04/20/19 One Impairment Pt lacks appropriate self care HEP Shelter Goal (LTG) Pt will be independent in a self care HEP of PF strengthening, hip ROM/ strengthening, core strengthening. LTG Duration 04/20/19 (03/19/19: Progressing) Assessment Summary Assessment Voiding times look good at every 2-3 hours at work and sometimes 4 hours. Pt demonstrates poor core stability in abdominals with TA contraction not automatically activating with regular activities (with Ribeiro, and Shhh). Pt able to perform TA with manual self cuing. Pt LLE weak due to MS. Pt not leaking, but shows area of poor pelvic stability due to weakness and mild decreased hip mobility. Pt ability to contract PF without substitute ms was not assessed today due to lack of time. Physical Therapy Plan Frequency and Duration Frequency of Treatment 1x/Week Plan of Care Start Date 02/19/19 Plan of Care End Date 04/20/19 Next Visit Focus/Plan Next Note Type Treatment Note Next Visit Plan Assess PF strength and ability to relax with EMG biofeedback (in isolation of substitute muscles). Initiate training for PF contraction in isolation of substitute muscles. Start HEP for hip mobility and issue handouts for HEP of hip ROM (L AB and AD) & strengthening ex's. Start proper PF contraction awareness training and strengthening.
--- NOTE | 2019-04-09 11:30 | PT.OTN ---
Current Diagnoses Uterovaginal prolapse, unspecified (04/09/19) Physical Therapy Treatment Note PT-OP-A Visit Information Start: 02/16/19 16:09 Freq: Status: Active Protocol: Document 04/09/19 09:48 LRN (Rec: 04/09/19 11:29 LRN [id number]) Out-Patient Physical Therapy Visit Information Visit Information Visit Type Treatment Note Visit Start Time 09:48 Visit Stop Time 10:50 Total Visit Minutes 52 Visit Number 5 Number of RADIAL DRILL OPERATOR FOR PLASTIC Visits 0 Precautions Precautions Multiple Sclerosis Neuropathy of feet Hypothyroid Chronic back, neck pain PT-OP-B Current Condition Start: 02/16/19 16:09 Freq: Status: Active Protocol: Document 02/19/19 10:38 LRN (Rec: 02/19/19 16:21 LRN [id number]) Current Condition History of Current Condition Onset Date 2 yrs ago. Current Complaints Feeling of pressure in PF and feeling of sitting on something. History of Current Condition Pt reports in addition to feeling of pressure in the PF she sometimes has throbbing in the rectum. She reports having constipation. When standing she feels like she is stepping on crumpled paper, but to touch her feet feels normal. She sometimes also feels like she is slipping on ice when she walks. She has variable weakness in her legs due to multiple sclerosis. Developmental History Developmental History Insidious onset. Treatment Goals Patient/Caregiver Goals Pt goal is to learn what to do to prevent the feeling of sitting on a bulge and to alleviate the sensation. Prior Functional Status Baseline Function- ADL's Independent Baseline Function- Mobility Independent Baseline Function- Other 2 yrs ago able to sit without feeling a bulge. Current Functional Impairments (Reported) Functional Limitations- ADL's Sitting, feeling of sitting on something. Personal Factors Other Personal Factors That May Effect Multiple Sclerosis Therapy/Recovery Neuropathy of feet Hypothyroid Chronic back, neck pain PT-OP-C Subjective Start: 02/16/19 16:09 Freq: Status: Active Protocol: Document 04/09/19 09:48 LRN (Rec: 04/09/19 11:29 LRN [id number]) OP-PT Subjective Patient Comments Patient Comments Doing ex's morning and eveniong. Drinking more fluids has helped. Not as constipated. Less bulge felt sitting. Requests handouts of ex's again. PT-OP-I Pelvic Floor Start: 02/19/19 13:20 Freq: Status: Active Protocol: Document 04/09/19 09:48 LRN (Rec: 04/09/19 11:29 LRN [id number]) Pelvic Floor Assessment SEMG (uV) Baseline 6.7 Quick Contraction 20.5 10 Second Contraction 9.2 Recruitment Pattern Good Relaxation Poor/Slow Stability of Hold Poor/Slow SEMG Stability of Rest Poor/Slow Comments Pelvic Floor Comments PF Electrode @ level of Perineal body (electrode B): Quick Contraction Avg Rest: 20 .2uV. Long Hold Avg Rest: 7.2uV AT LEFT THIGH (electrode A): Baseline: 140.8uV Quick Contraction: Avg Work 33 .4uV, Avg Rest 26.0uV. Long Hold Contraction: Avg Work 49.4uV, Avg Rest 68.3uV. PT-OP-J Posture/Palpation/Skin Start: 02/16/19 16:09 Freq: Status: Active Protocol: Document 02/19/19 10:38 LRN (Rec: 02/19/19 16:21 LRN [id number]) Posture Evaluation Comments Posture Comments Standing: Valgus leg L>R, ER of R foot, Lower L iliac crest , C-curve of lower thoracic/ upper lumbar spine, and low R shoulder, mild forward head, mild dowager, mild anterior tilt of pelvis. Atrophy noted in L hip and leg. PT-OP-K Range of Motion Start: 02/16/19 16:09 Freq: Status: Active Protocol: Document 03/19/19 10:34 LRN (Rec: 03/19/19 12:06 LRN [id number]) Hip Goniometric Range of Motion Hip Right Passive Testing Position Supine Straight Leg Raise 90 Abduction 55 Internal Rotation 35 External Rotation 58 Left Passive Testing Position Supine Straight Leg Raise 90 Abduction 45 Internal Rotation 35 External Rotation 58 Hip ROM Limitations Comments Hip AB is 55 deg's right, 45 deg's left. PT-OP-M Strength Start: 02/16/19 16:09 Freq: Status: Active Protocol: Document 03/19/19 10:34 LRN (Rec: 03/19/19 12:06 LRN [id number]) Hip Strength Hip Manual Muscle Testing Right Comments R LE strength is 5/5 in all muscle groups. Left Flexion (L2) 2 Poor Extension (S1) 2- Poor- Abduction 2 Poor Adduction 1 Trace External Rotation 3 Fair Internal Rotation 4 Good PT-OP-Q Treatments Start: 02/16/19 16:09 Freq: Status: Active Protocol: Document 04/09/19 09:48 LRN (Rec: 04/09/19 11:29 LRN [id number]) Therapeutic Exercises Supine Exercises LE Roll in/out with Deep Breathing Supine Exercise Name LE Roll in/out with Deep Breathing Side bilateral Deep Breathing Supine Exercise Name Deep Breathing Comments Good ability Piriformis Stretch Supine Exercise Name Stretch to hip IR's Side left Reps/Minutes 60 x 1 Comments 2 times Sidelying Exercises Hip AB/AD Sidelying Exercise Name Hip AB/AD Side left Reps/Minutes 10 x each Neuro Re-Education Treatment Other Activities PF Contractions Details Resting, Quick Flicks & Long ( 10 sec) Holds Reps/Duration 20' Comments PF contractions while monitoring PF & L hip AD. Self-Care/Home Management Treatment Education Patient Education Home Exercise Program Other Education Reviewed proper hip hinge with proper breathing technique for ADLs and discussed in relation to exercise. Activities Self-Care/Home Management Activities Reissued HEP of Progressive core stabilization and pelvic brace techniques. Issued & reviewed HEP: LE Roll in/outs in supine & sit with T-Band Lev 2 issued. Hip IR stretch to L hip for first 2 weeks to start, and hip AB/ AD strengthening of L hip. PT-OP-T Assessment and Plan Start: 02/16/19 16:09 Freq: Status: Active Protocol: Document 04/09/19 09:48 LRN (Rec: 04/09/19 11:29 LRN [id number]) Physical Therapy Assessment Goals Three Impairment Decreased PF/core stability Short Term Goal (STG) Pt will be educated and able to perform proper hip hinging with body mechanics to improve core stability. STG Duration 03/22/19 (03/19/19: GOAL MET ) Plant Maintenance Technician Goal (LTG) Pt will be educated in proper bladder and bowel care to minimize LTG Duration 04/20/19 (03/05/19: GOAL MET) Two Impairment Weakness of the PF with a feeling of heaviness and sitting on bulge. Short Term Goal (STG) Pt will be able to perform a PF contraction without assist of substitute muscles to improve PF strength. STG Duration (12/5/19: Improving mild use of hip AD & minimal TA) Mcc Goal (LTG) Pt will be able to improve PF strength in order to prevent a feeling of sitting on a bulge . LTG Duration 04/20/19 (04/09/19: Improving) One Impairment Pt lacks appropriate self care HEP Mcc Goal (LTG) Pt will be independent in a self care HEP of PF strengthening, hip ROM/ strengthening, core strengthening. LTG Duration 04/20/19 (04/09/19: Progressing) Assessment Summary Assessment Pt appears to have a good understanding of her HEP. She appears able to isolate her PF contraction from her gluteals and mostly TA, but has palpable activation of her hip AD's with a PF contraction. PersEMG Biofeedback she appears to have use of her hip AD's as she performs her PF contractions. She has good Quick contractions (20.5uV), but poor relaxation. Her endurance is poor with holding and avg strength is weak (9. 2uV). She has poor stability of holding and when relaxed. Pt is wanting to continue only 1-2 more visits due to insurance limitations. Physical Therapy Plan Frequency and Duration Frequency of Treatment 1x/Week Plan of Care Start Date 02/19/19 Plan of Care End Date 04/20/19 Next Visit Focus/Plan Next Note Type Progress Note Next Visit Plan If pt wishes to continue new POC is needed. Continue training for PF contraction in isolation of substitute muscles. Review HEP for hip mobility and strengthening ( hip L AB and AD). Progress proper PF contraction awareness training and strengthening.
--- NOTE | 2019-04-23 18:05 | PT.OTN ---
Current Diagnoses Uterovaginal prolapse, unspecified (04/23/19) Physical Therapy Treatment Note PT-OP-A Visit Information Start: 02/16/19 16:09 Freq: Status: Active Protocol: Document 04/23/19 09:51 LRN (Rec: 04/23/19 10:35 LRN [id number]) Out-Patient Physical Therapy Visit Information Visit Information Visit Type Progress Note Visit Start Time 09:51 Visit Stop Time 10:35 Total Visit Minutes 44 Visit Number 6 Number of FUR PULLER Visits 0 Evaluation Information Evaluation Date 02/19/19 Precautions Precautions Multiple Sclerosis Neuropathy of feet Hypothyroid Chronic back, neck pain PT-OP-B Current Condition Start: 02/16/19 16:09 Freq: Status: Active Protocol: Document 02/19/19 10:38 LRN (Rec: 02/19/19 16:21 LRN [id number]) Current Condition History of Current Condition Onset Date 2 yrs ago. Current Complaints Feeling of pressure in PF and feeling of sitting on something. History of Current Condition Pt reports in addition to feeling of pressure in the PF she sometimes has throbbing in the rectum. She reports having constipation. When standing she feels like she is stepping on crumpled paper, but to touch her feet feels normal. She sometimes also feels like she is slipping on ice when she walks. She has variable weakness in her legs due to multiple sclerosis. Developmental History Developmental History Insidious onset. Treatment Goals Patient/Caregiver Goals Pt goal is to learn what to do to prevent the feeling of sitting on a bulge and to alleviate the sensation. Prior Functional Status Baseline Function- ADL's Independent Baseline Function- Mobility Independent Baseline Function- Other 2 yrs ago able to sit without feeling a bulge. Current Functional Impairments (Reported) Functional Limitations- ADL's Sitting, feeling of sitting on something. Personal Factors Other Personal Factors That May Effect Multiple Sclerosis Therapy/Recovery Neuropathy of feet Hypothyroid Chronic back, neck pain PT-OP-C Subjective Start: 02/16/19 16:09 Freq: Status: Active Protocol: Document 04/23/19 09:51 LRN (Rec: 04/23/19 10:35 LRN [id number]) OP-PT Subjective Patient Comments Patient Comments States has been sick so not doing ex's. Has questions regarding exercises given last treatment. Requests review of HEP only with DC to HEP. PT-OP-I Pelvic Floor Start: 02/19/19 13:20 Freq: Status: Active Protocol: Document 04/23/19 09:51 LRN (Rec: 04/24/19 17:40 LRN [id number]) Pelvic Floor Assessment Prolapse Cystocele Grade 1 Perineal Descent Bearing Present Contraction Ability Manual Muscle Testing Left 2 Manual Muscle Testing Right 3 Manual Muscle Testing Anterior 3 Manual Muscle Testing Posterior 3 Muscle Endurance (Seconds) 4 Number of Quick Contractions In 10 6 Seconds Comments Pelvic Floor Comments Pt is able to perform a PF contraction in isolation of her accessory muscles. Good lift is felt in the R sidewall, posterior and anterior PF. A fair lift is felt in the L sidewall. There is not a drawing in but a lift is felt with a PF contraction as previously described. PT-OP-J Posture/Palpation/Skin Start: 02/16/19 16:09 Freq: Status: Active Protocol: Document 02/19/19 10:38 LRN (Rec: 02/19/19 16:21 LRN [id number]) Posture Evaluation Comments Posture Comments Standing: Valgus leg L>R, ER of R foot, Lower L iliac crest , C-curve of lower thoracic/ upper lumbar spine, and low R shoulder, mild forward head, mild dowager, mild anterior tilt of pelvis. Atrophy noted in L hip and leg. PT-OP-K Range of Motion Start: 02/16/19 16:09 Freq: Status: Active Protocol: Document 03/19/19 10:34 LRN (Rec: 03/19/19 12:06 LRN [id number]) Hip Goniometric Range of Motion Hip Right Passive Testing Position Supine Straight Leg Raise 90 Abduction 55 Internal Rotation 35 External Rotation 58 Left Passive Testing Position Supine Straight Leg Raise 90 Abduction 45 Internal Rotation 35 External Rotation 58 Hip ROM Limitations Comments Hip AB is 55 deg's right, 45 deg's left. PT-OP-M Strength Start: 02/16/19 16:09 Freq: Status: Active Protocol: Document 03/19/19 10:34 LRN (Rec: 03/19/19 12:06 LRN [id number]) Hip Strength Hip Manual Muscle Testing Right Comments R LE strength is 5/5 in all muscle groups. Left Flexion (L2) 2 Poor Extension (S1) 2- Poor- Abduction 2 Poor Adduction 1 Trace External Rotation 3 Fair Internal Rotation 4 Good PT-OP-Q Treatments Start: 02/16/19 16:09 Freq: Status: Active Protocol: Document 04/23/19 09:51 LRN (Rec: 04/24/19 17:29 LRN [id number]) Therapeutic Exercises Supine Exercises PF Quick Flicks Supine Exercise Name Quick Flicks Reps/Minutes 3' Comments Pt able to perform in isolation of accessory muscles . PF long holds Supine Exercise Name Long Holds Reps/Minutes 5' Comments Pt able to perform in isolation of accessory muscles . LE Roll in/out with Deep Breathing Supine Exercise Name LE Roll in/out with Deep Breathing Side bilateral Deep Breathing Supine Exercise Name Deep Breathing Comments Good ability Self-Care/Home Management Treatment Education Patient Education Home Exercise Program Activities Self-Care/Home Management Activities Reviewed at length HEP for pt to progress independently. Reviewed all self care exercises and answered questions on all her exercises . Discussed at length each exercise and purpose, focus of exercise and areas to focus on (example: relaxation between contractions & hip mobility and strengthening, especially hip L AB and AD), use of equipment for resistance (gravity and T-Band ), amount of resistance, exercises in different positions (supine, sit, stand) , progression of exercises, review of importance of breath work with exercise. Discussed variations to exercises to be done through day at work or when not at home. Issued & reviewed HEP for: 1) Diagonal Abdominal core strengthening, 2) PF strengthening in position of active hamstring stretch, 3) standing plie PF strengthening . PT-OP-T Assessment and Plan Start: 02/16/19 16:09 Freq: Status: Active Protocol: Document 04/23/19 09:51 LRN (Rec: 04/23/19 10:35 LRN [id number]) Physical Therapy Assessment Rehab Potential Rehabilitation Potential Good Evaluation Complexity Number of Personal Factors/Comorbidities 3 or More Number of Body Systems Impaired 1-2 Clinical Presentation at Evaluation Evolving Impairments Impairments ROM,Strength Other Impairments Independent with HEP. Goals Three Impairment Decreased PF/core stability Short Term Goal (STG) Pt will be educated and able to perform proper hip hinging with body mechanics to improve core stability. STG Duration 03/22/19 (03/19/19: GOAL MET ) Senior Wind Turbine Technician Goal (LTG) Pt will be educated in proper bladder and bowel care to minimize LTG Duration 04/20/19 (03/05/19: GOAL MET) Two Impairment Weakness of the PF with a feeling of heaviness and sitting on bulge. Short Term Goal (STG) Pt will be able to perform a PF contraction without assist of substitute muscles to improve PF strength. STG Duration 04/23/19 (04/23/19: GOAL MET) Jail Goal (LTG) Pt will be able to improve PF strength in order to prevent a feeling of sitting on a bulge . LTG Duration 04/23/19 (04/23/19: GOAL MET ) One Impairment Pt lacks appropriate self care HEP Senior Wind Turbine Technician Goal (LTG) Pt will be independent in a self care HEP of PF strengthening, hip ROM/ strengthening, core strengthening. LTG Duration 04/23/19 (04/23/19: GOAL MET ) Assessment Summary Assessment The pt has done well with therapy overall. I recommend the pt be seen today, as she comes to therapy for one more therapy session for a new Plan of Care for self care instructions today. She feels ready for discharge after this more therapy visit to review her HEP. The pt needed review of exercise with extensive discussion of self progression of exercise and everything discussed in the self care treatment section of this note. The pt is aware that if her symptoms of bulging returns she will need another referral to return to therapy for further treatment. Physical Therapy Plan Frequency and Duration Frequency of Treatment 1x/Week Plan of Care Start Date 02/19/19 Plan of Care End Date 04/23/19 Therapeutic Interventions Therapeutic Interventions Home Exercise Program,Self- Care/Home Management, Therapeutic Exercises Next Visit Focus/Plan Next Note Type Progress Note Next Visit Plan Pt is being seen today to be placed on an independent HEP. After today no further therapy is planned.
--- NOTE | 2019-04-23 18:09 | PT.OPDS ---
Current Diagnoses Uterovaginal prolapse, unspecified (04/23/19) Visit Care Team Role Provider Type Juani Gamboa ND Attending Provider Non-Staff Primary Care Provider Specialty: Naturopathy Address: [address] [place] [address], [facility] Email: Visit Number Visit Number 6 Discharge Summary PT-OP-B Current Condition Start: 02/16/19 16:09 Freq: Status: Active Protocol: Document 02/19/19 10:38 LRN (Rec: 02/19/19 16:21 LRN [id number]) Current Condition History of Current Condition Onset Date 2 yrs ago. Current Complaints Feeling of pressure in PF and feeling of sitting on something. History of Current Condition Pt reports in addition to feeling of pressure in the PF she sometimes has throbbing in the rectum. She reports having constipation. When standing she feels like she is stepping on crumpled paper, but to touch her feet feels normal. She sometimes also feels like she is slipping on ice when she walks. She has variable weakness in her legs due to multiple sclerosis. Developmental History Developmental History Insidious onset. Treatment Goals Patient/Caregiver Goals Pt goal is to learn what to do to prevent the feeling of sitting on a bulge and to alleviate the sensation. Prior Functional Status Baseline Function- ADL's Independent Baseline Function- Mobility Independent Baseline Function- Other 2 yrs ago able to sit without feeling a bulge. Current Functional Impairments (Reported) Functional Limitations- ADL's Sitting, feeling of sitting on something. Personal Factors Other Personal Factors That May Effect Multiple Sclerosis Therapy/Recovery Neuropathy of feet Hypothyroid Chronic back, neck pain PT-OP-C Subjective Start: 02/16/19 16:09 Freq: Status: Active Protocol: Document 04/23/19 09:51 LRN (Rec: 04/23/19 10:35 LRN [id number]) OP-PT Subjective Patient Comments Patient Comments States has been sick so not doing ex's. Has questions regarding exercises given last treatment. Requests review of HEP only with DC to HEP. PT-OP-I Pelvic Floor Start: 02/19/19 13:20 Freq: Status: Active Protocol: Document 04/23/19 09:51 LRN (Rec: 04/24/19 17:40 LRN [id number]) Pelvic Floor Assessment Prolapse Cystocele Grade 1 Perineal Descent Bearing Present Contraction Ability Manual Muscle Testing Left 2 Manual Muscle Testing Right 3 Manual Muscle Testing Anterior 3 Manual Muscle Testing Posterior 3 Muscle Endurance (Seconds) 4 Number of Quick Contractions In 10 6 Seconds Comments Pelvic Floor Comments Pt is able to perform a PF contraction in isolation of her accessory muscles. Good lift is felt in the R sidewall, posterior and anterior PF. A fair lift is felt in the L sidewall. There is not a drawing in but a lift is felt with a PF contraction as previously described. PT-OP-J Posture/Palpation/Skin Start: 02/16/19 16:09 Freq: Status: Active Protocol: Document 02/19/19 10:38 LRN (Rec: 02/19/19 16:21 LRN [id number]) Posture Evaluation Comments Posture Comments Standing: Valgus leg L>R, ER of R foot, Lower L iliac crest , C-curve of lower thoracic/ upper lumbar spine, and low R shoulder, mild forward head, mild dowager, mild anterior tilt of pelvis. Atrophy noted in L hip and leg. PT-OP-K Range of Motion Start: 02/16/19 16:09 Freq: Status: Active Protocol: Document 03/19/19 10:34 LRN (Rec: 03/19/19 12:06 LRN [id number]) Hip Goniometric Range of Motion Hip Right Passive Testing Position Supine Straight Leg Raise 90 Abduction 55 Internal Rotation 35 External Rotation 58 Left Passive Testing Position Supine Straight Leg Raise 90 Abduction 45 Internal Rotation 35 External Rotation 58 Hip ROM Limitations Comments Hip AB is 55 deg's right, 45 deg's left. PT-OP-M Strength Start: 02/16/19 16:09 Freq: Status: Active Protocol: Document 03/19/19 10:34 LRN (Rec: 03/19/19 12:06 LRN [id number]) Hip Strength Hip Manual Muscle Testing Right Comments R LE strength is 5/5 in all muscle groups. Left Flexion (L2) 2 Poor Extension (S1) 2- Poor- Abduction 2 Poor Adduction 1 Trace External Rotation 3 Fair Internal Rotation 4 Good PT-OP-T Assessment and Plan Start: 02/16/19 16:09 Freq: Status: Active Protocol: Document 04/23/19 09:51 LRN (Rec: 04/23/19 10:35 LRN [id number]) Physical Therapy Assessment Rehab Potential Rehabilitation Potential Good Evaluation Complexity Number of Personal Factors/Comorbidities 3 or More Number of Body Systems Impaired 1-2 Clinical Presentation at Evaluation Evolving Impairments Impairments ROM,Strength Other Impairments Independent with HEP. Goals Three Impairment Decreased PF/core stability Short Term Goal (STG) Pt will be educated and able to perform proper hip hinging with body mechanics to improve core stability. STG Duration 03/22/19 (03/19/19: GOAL MET ) Assisted Goal (LTG) Pt will be educated in proper bladder and bowel care to minimize LTG Duration 04/20/19 (03/05/19: GOAL MET) Two Impairment Weakness of the PF with a feeling of heaviness and sitting on bulge. Short Term Goal (STG) Pt will be able to perform a PF contraction without assist of substitute muscles to improve PF strength. STG Duration 04/23/19 (04/23/19: GOAL MET) Washhouse Worker Goal (LTG) Pt will be able to improve PF strength in order to prevent a feeling of sitting on a bulge . LTG Duration 04/23/19 (04/23/19: GOAL MET ) One Impairment Pt lacks appropriate self care HEP Washhouse Worker Goal (LTG) Pt will be independent in a self care HEP of PF strengthening, hip ROM/ strengthening, core strengthening. LTG Duration 04/23/19 (04/23/19: GOAL MET ) Assessment Summary Assessment The pt has done well with therapy overall. I recommend the pt be seen today, as she comes to therapy for one more therapy session for a new Plan of Care for self care instructions today. She feels ready for discharge after this more therapy visit to review her HEP. The pt needed review of exercise with extensive discussion of self progression of exercise and everything discussed in the self care treatment section of this note. The pt is aware that if her symptoms of bulging returns she will need another referral to return to therapy for further treatment. Physical Therapy Plan Frequency and Duration Frequency of Treatment 1x/Week Plan of Care Start Date 02/19/19 Plan of Care End Date 04/23/19 Therapeutic Interventions Therapeutic Interventions Home Exercise Program,Self- Care/Home Management, Therapeutic Exercises Next Visit Focus/Plan Next Note Type Progress Note Next Visit Plan Pt is being seen today to be placed on an independent HEP. After today no further therapy is planned.
--- NOTE | 2019-04-24 18:05 | PT.OPPOC ---
Current Diagnoses Uterovaginal prolapse, unspecified (04/23/19) Visit Care Team Role Provider Type Juani Gamboa ND Attending Provider Non-Staff Primary Care Provider Specialty: Naturopathy Address: [address] [place] [address], [facility] Email: Plan Of Care PT-OP-T Assessment and Plan Start: 02/16/19 16:09 Freq: Status: Active Protocol: Document 04/23/19 09:51 LRN (Rec: 04/23/19 10:35 LRN [id number]) Physical Therapy Assessment Rehab Potential Rehabilitation Potential Good Evaluation Complexity Number of Personal Factors/Comorbidities 3 or More Number of Body Systems Impaired 1-2 Clinical Presentation at Evaluation Evolving Impairments Impairments ROM,Strength Other Impairments Independent with HEP. Goals Three Impairment Decreased PF/core stability Short Term Goal (STG) Pt will be educated and able to perform proper hip hinging with body mechanics to improve core stability. STG Duration 03/22/19 (03/19/19: GOAL MET ) Fci Goal (LTG) Pt will be educated in proper bladder and bowel care to minimize LTG Duration 04/20/19 (03/05/19: GOAL MET) Two Impairment Weakness of the PF with a feeling of heaviness and sitting on bulge. Short Term Goal (STG) Pt will be able to perform a PF contraction without assist of substitute muscles to improve PF strength. STG Duration 04/23/19 (04/23/19: GOAL MET) Manager Export Goal (LTG) Pt will be able to improve PF strength in order to prevent a feeling of sitting on a bulge . LTG Duration 04/23/19 (04/23/19: GOAL MET ) One Impairment Pt lacks appropriate self care HEP Manager Export Goal (LTG) Pt will be independent in a self care HEP of PF strengthening, hip ROM/ strengthening, core strengthening. LTG Duration 04/23/19 (04/23/19: GOAL MET ) Assessment Summary Assessment The pt has done well with therapy overall. I recommend the pt be seen today, as she comes to therapy for one more therapy session for a new Plan of Care for self care instructions today. She feels ready for discharge after this more therapy visit to review her HEP. The pt needed review of exercise with extensive discussion of self progression of exercise and everything discussed in the self care treatment section of this note. The pt is aware that if her symptoms of bulging returns she will need another referral to return to therapy for further treatment. Physical Therapy Plan Frequency and Duration Frequency of Treatment 1x/Week Plan of Care Start Date 02/19/19 Plan of Care End Date 04/23/19 Therapeutic Interventions Therapeutic Interventions Home Exercise Program,Self- Care/Home Management, Therapeutic Exercises Next Visit Focus/Plan Next Note Type Progress Note Next Visit Plan Pt is being seen today to be placed on an independent HEP. After today no further therapy is planned. Plan of Care Dates Plan of Care Start Date 02/19/19 Plan of Care End Date 04/23/19
== END 2019-05-04 13:37 ==
LOC: PHYS 09:45
PROVIDERS: PCP Naturopath; Visit Provider Naturopath
DX: N81.4 Uterovaginal prolapse, unspecified (principal)
CPT/HCPCS: 97110; 97112; 97162; 97535

== ENCOUNTER → 2019-05-23 11:59 | Outpatient (CLI) | payer OTHER, SELFPAY | PROVIDERS: PCP Naturopath; Visit Provider Naturopath | DX: A09 Infectious gastroenteritis and colitis, unspecified (principal) | CPT/HCPCS: 87045; 87177; 87899 ==

== ENCOUNTER → 2019-06-03 13:12 | Outpatient (CLI) | payer OTHER, SELFPAY ==
--- NOTE | 2019-06-03 | DI.RAD.S_ITS ---
PROCEDURE: XR THORACIC SPINE 3V INDICATIONS: Left lower thoracic pain, open collimation per odering provider TECHNIQUE: 3 views of the thoracic spine were acquired. COMPARISON: None. FINDINGS: Bones: No fractures or dislocations. No suspicious bony lesions. 12 pairs of ribs are noted, and appear intact where visualized. Soft tissues: No paravertebral stripe thickening. IMPRESSION: Slight convex left curvature of the low thoracic spine, no source of pain is seen. Dictated by: Sunny Kessler M.D. on 06/03/2019 at 14:04 Approved by: Sunny Kessler M.D. on 06/03/2019 at 14:04
== END ==
PROVIDERS: PCP Naturopath; Visit Provider Chiropractor
DX: M54.6 Pain in thoracic spine (principal)
CPT/HCPCS: 72072

== ENCOUNTER → 2019-12-31 10:34 | Outpatient (CLI) | payer OTHER, SELFPAY ==
[2019-12-31 11:50] LABS: Add Manual Diff / Slide Review NO; Basophils Absolute Auto 0 /uL (0-100); Basophils Percent Auto 0.8 % (0-2); Eosinophils Absolute Auto 500 /uL (0-450); Eosinophils Percent Auto 7.5 % (2-4); Hematocrit 38.9 % (36-46); Hemoglobin 13.1 g/dL (12.0-16.0); Lymphocytes Absolute Auto 1900 /uL (1100-4500); Lymphocytes Percent Auto 30.6 % (25-40); Mean Corpuscular HGB Conc 33.8 % (30-36); Mean Corpuscular Hemoglobin 27.8 PG (26-34); Mean Corpuscular Volume 82.4 fL (80-100); Monocytes Absolute Auto 500 /uL (0-900); Monocytes Percent Auto 8.7 % (3-14); Neutrophils Absolute Auto 3200 /uL (1500-7000); Neutrophils Percent Auto 52.4 % (50-75); Platelet Count 288 X10^3/uL (150-400); Red Blood Cell Count 4.72 X10^6/uL (4.0-5.2); White Blood Cell Count 6.1 X10^3/uL (4.5-11.0)
[2019-12-31 12:23] LABS: Alanine Aminotransferase 32 IU/L (<35); Albumin 4.4 g/dL (3.5-5.0); Albumin Globulin Ratio 1.6 (1.0-2.8); Alkaline Phosphatase 81 U/L (38-126); Aspartate Aminotransferase 29 IU/L (14-36); BUN Creatinine Ratio 12.9 (6-22); Bilirubin Total 0.6 mg/dL (0.2-1.3); Blood Urea Nitrogen 11 mg/dL (7-17); Calcium 9.8 mg/dL (8.4-10.2); Carbon Dioxide 28 mmol/L (22-32); Chloride 102 mmol/L (98-107); Cholesterol 213 mg/dL (140-199); Estimated Glomerular Filt Rate > 60.0 mL/min (>60); Globulin 2.7 g/dL (1.7-4.1); Glucose 88 mg/dL (80-110); HDL Cholesterol 92 mg/dL (40-60); HEMOLYSIS < 15 (0-50); LDL Cholesterol Calculated 98 mg/dL (<100); Potassium 4.8 mmol/L (3.4-5.1); Sodium 137 mmol/L (137-145); Total Protein 7.1 g/dL (6.3-8.2); Triglycerides 117 mg/dL (35-150)
[2019-12-31 12:37] LABS: Free T4, Direct Thyroxine 0.66 ng/dL (0.78-2.19)
[2019-12-31 12:51] LABS: Thyroid Stimulating Hormone 1.31 uIU/mL (0.47-4.68)
== END ==
PROVIDERS: PCP Naturopath; Referring Provider Naturopath; Visit Provider Naturopath
DX: Z00.00 Encounter for general adult medical examination without abnormal findings (principal); E03.9 Hypothyroidism, unspecified
CPT/HCPCS: 36415; 80053; 80061; 84439; 84443; 84481; 85025

== ENCOUNTER → 2020-01-21 16:57 | Outpatient (CLI) | payer OTHER, SELFPAY ==
--- NOTE | 2020-01-21 | DI.US.S_ITS ---
PROCEDURE: US THYROID INDICATIONS: ROUTINE SCREENING TECHNIQUE: Real-time scanning was performed of the thyroid gland, with image documentation. COMPARISON: [facility] [place], US THYROID, 12/06/2017, 12:29. [facility], [place], THYROID, 07/26/2015, 16:24. FINDINGS: Right: Thyroid lobe measures 1.7 x 2.5 x 5.1 cm. Little if any change from the comparison thyroid ultrasound when the thyroid gland on the right had measured 2.7 x 3.0 x 5.1 cm. There is a dominant nodule at the inferior right thyroid lobe currently measuring 1.8 x 2.1 x 2.6 cm and previously measuring 2.5 x 2.8 x 3.1 cm. This is wider than tall, predominantly solid, hypoechoic, smoothly marginated and contains no internal echogenic foci. This structure appears to have mildly diminished in size with reference to the prior study. Left: The left gland measures small in size measuring 0.6 x 0.7 x 2.8 cm, having previously measured 0.6 x 0.6 x 3.1 cm. Isthmus: 1.7 mm thick. Lymph nodes: No regional lymphadenopathy. IMPRESSION: Right-sided inferior thyroid nodule mildly diminished in size from the comparison study in December of 2017. Asymmetric size of the thyroid, small on the left. The right inferior thyroid nodule shows imaging characteristics considered a tie rads 3 categorization, mildly suspicious. Follow-up in 2 years is recommended. Dictated by: Sunny Kessler M.D. on 01/22/2020 at 11:53 Approved by: Sunny Kessler M.D. on 01/22/2020 at 12:04
--- NOTE | 2020-01-21 | DI.RAD.S_ITS ---
PROCEDURE: XR CHEST 2V INDICATIONS: R91.1 TECHNIQUE: 2 views of the chest were acquired. COMPARISON: None. FINDINGS: Surgical changes and devices: None. Lungs and pleura: Lungs are clear. No pleural effusions or pneumothorax. Mediastinum: Mediastinal contours are normal. Heart size is normal. Bones and chest wall: No suspicious bony abnormalities. Soft tissues appear unremarkable. IMPRESSION: Normal for age, source of current symptoms is not seen. Dictated by: Sunny Kessler M.D. on 01/21/2020 at 17:48 Approved by: Sunny Kessler M.D. on 01/21/2020 at 17:48
--- NOTE | 2020-01-21 | DI.MG.S_ITS ---
BILATERAL DIGITAL SCREENING MAMMOGRAM 3D/2D WITH CAD: 01/21/2020 CLINICAL: Routine screening. Family history of breast cancer. Comparison is made to exams dated: 12/18/2018 mammogram, 12/06/2017 mammogram, and 04/05/2017 mammogram - [facility]. There are scattered fibroglandular elements in both breasts. Current study was also evaluated with a Computer Aided Detection (CAD) system. No significant masses, calcifications, or other findings are seen in either breast. There has been no significant interval change. IMPRESSION: NEGATIVE There is no mammographic evidence of malignancy. A 1 year screening mammogram is recommended. This exam was interpreted at Station ID: [id number]. NOTE: For mammograms, a report in lay terms will be sent to the patient. Approximately 15% of breast malignancies will not be visualized mammographically. In the management of a palpable breast mass, a negative mammogram must not discourage biopsy of a clinically suspicious lesion. Electronically Signed By: Amrit duong/pio:01/21/2020 17:41:10 letter sent: Normal Exam ACR BI-RADS Category 1: Negative 3341F
== END ==
PROVIDERS: PCP Naturopath; Referring Provider Naturopath; Visit Provider Naturopath
DX: Z12.31 Encounter for screening mammogram for malignant neoplasm of breast (principal); Z80.3 Family history of malignant neoplasm of breast; E04.2 Nontoxic multinodular goiter; R91.1 Solitary pulmonary nodule
CPT/HCPCS: 71046; 76536; 77063; 77067

== ENCOUNTER → 2020-12-29 10:05 | Outpatient (CLI) | payer OTHER, SELFPAY ==
[2020-12-29 11:46] LABS: Free T3, Triiodothyronine Free 3.82 pg/mL (2.77-5.27); Free T4, Direct Thyroxine 0.76 ng/dL (0.78-2.19)
[2020-12-29 11:59] LABS: Thyroid Stimulating Hormone 0.528 uIU/mL (0.47-4.68)
[2021-01-02 09:40] LABS: Triiodothyronine T3 Reverse 7.4 ng/dL (9.2-24.1)
== END ==
PROVIDERS: PCP Naturopath; Referring Provider Naturopath; Visit Provider Naturopath
DX: E03.9 Hypothyroidism, unspecified (principal); E04.1 Nontoxic single thyroid nodule
CPT/HCPCS: 36415; 84439; 84443; 84481; 84482

== ENCOUNTER → 2021-06-02 15:41 | Outpatient (CLI) | payer OTHER, MEDICAID, SELFPAY ==
--- NOTE | 2021-06-02 | DI.MG.S_ITS ---
BILATERAL DIGITAL SCREENING MAMMOGRAM 3D/2D WITH CAD: 06/02/2021 CLINICAL: Routine screening. Family history of breast cancer. Comparison is made to exams dated: 01/21/2020 mammogram, 12/18/2018 mammogram, and 12/06/2017 mammogram - [facility]. There are scattered fibroglandular elements in both breasts. Current study was also evaluated with a Computer Aided Detection (CAD) system. No significant masses, calcifications, or other findings are seen in either breast. There has been no significant interval change. IMPRESSION: NEGATIVE There is no mammographic evidence of malignancy. A 1 year screening mammogram is recommended. This exam was interpreted at Station ID: [id number]. NOTE: For mammograms, a report in lay terms will be sent to the patient. Approximately 15% of breast malignancies will not be visualized mammographically. In the management of a palpable breast mass, a negative mammogram must not discourage biopsy of a clinically suspicious lesion. Electronically Signed By: Stef Malone acr/penrad:06/02/2021 16:47:42 letter sent: Normal Exam ACR BI-RADS Category 1: Negative [id number]
== END ==
PROVIDERS: PCP Family Medicine; Referring Provider Family Medicine; Visit Provider Family Medicine
DX: Z12.31 Encounter for screening mammogram for malignant neoplasm of breast (principal); Z80.3 Family history of malignant neoplasm of breast
CPT/HCPCS: 77063; 77067

== ENCOUNTER → 2022-01-18 07:17 | Outpatient (CLI) | payer OTHER, MEDICAID, SELFPAY ==
[2022-01-18 10:35] LABS: Add Manual Diff / Slide Review NO; Basophils Absolute Auto 0 /uL (0-100); Basophils Percent Auto 0.7 % (0-2); Eosinophils Absolute Auto 100 /uL (0-450); Eosinophils Percent Auto 2.3 % (2-4); Hematocrit 35.9 % (36-46); Hemoglobin 12.2 g/dL (12.0-16.0); Lymphocytes Absolute Auto 1500 /uL (1100-4500); Lymphocytes Percent Auto 22.6 % (25-40); Mean Corpuscular Hemoglobin 27.4 PG (26-34); Mean Corpuscular Volume 80.6 fL (80-100); Monocytes Absolute Auto 500 /uL (0-900); Monocytes Percent Auto 7.6 % (3-14); Neutrophils Absolute Auto 4300 /uL (1500-7000); Neutrophils Percent Auto 66.8 % (50-75); Platelet Count 282 X10^3/uL (150-400); Red Blood Cell Count 4.45 X10^6/uL (4.0-5.2); Red Cell Distribution Width 14.6 % (11.6-14.8); White Blood Cell Count 6.5 X10^3/uL (4.5-11.0)
[2022-01-18 11:26] LABS: Alanine Aminotransferase 18 IU/L (<35); Albumin Globulin Ratio 1.5 (1.0-2.8); Alkaline Phosphatase 86 U/L (38-126); Aspartate Aminotransferase 20 IU/L (14-36); BUN Creatinine Ratio 16.9 (6-22); Bilirubin Total 0.5 mg/dL (0.2-1.3); Blood Urea Nitrogen 13 mg/dL (7-17); C-Reactive Protein Quant < 0.5 mg/dL (<1.0); Calcium 9.1 mg/dL (8.4-10.2); Carbon Dioxide 30 mmol/L (22-32); Chloride 98 mmol/L (98-107); Cholesterol 199 mg/dL (140-199); Estimated Glomerular Filt Rate > 60 mL/min (>60); Globulin 2.6 g/dL (1.7-4.1); Glucose 83 mg/dL (80-110); HDL Cholesterol 70 mg/dL (40-60); HEMOLYSIS < 15 (0-50); LDL Cholesterol Calculated 111 mg/dL (<100); Potassium 4.2 mmol/L (3.4-5.1); Sodium 137 mmol/L (137-145); Total Protein 6.6 g/dL (6.3-8.2); Triglycerides 90 mg/dL (35-150)
[2022-01-18 11:39] LABS: Free T3, Triiodothyronine Free 3.04 pg/mL (2.77-5.27)
[2022-01-18 11:40] LABS: Free T4, Direct Thyroxine 0.76 ng/dL (0.78-2.19)
[2022-01-18 11:53] LABS: Thyroid Stimulating Hormone 2.37 uIU/mL (0.47-4.68)
== END ==
PROVIDERS: PCP Family Medicine; Referring Provider Naturopath; Visit Provider Naturopath
DX: E03.9 Hypothyroidism, unspecified; Z00.00 Encounter for general adult medical examination without abnormal findings
CPT/HCPCS: 36415; 80053; 80061; 84439; 84443; 84481; 85025; 86140

== ENCOUNTER → 2022-06-04 10:06 | Outpatient (CLI) | payer OTHER, MEDICAID, SELFPAY ==
--- NOTE | 2022-06-04 10:08 | DI.MG.S_ITS ---
BILATERAL DIGITAL SCREENING MAMMOGRAM 3D/2D WITH CAD: 06/04/2022 CLINICAL: Routine screening. Family history of breast cancer. Comparison is made to exams dated: 06/02/2021 mammogram, 01/21/2020 mammogram, and 12/18/2018 mammogram - [facility]. There are scattered areas of fibroglandular density in both breasts (category b / 25%-50% glandular tissue). Current study was also evaluated with a Computer Aided Detection (CAD) system. No significant masses, calcifications, or other findings are seen in either breast. There has been no significant interval change. IMPRESSION: NEGATIVE There is no mammographic evidence of malignancy. A 1 year screening mammogram is recommended. Based on the Tyrer Cuzick model (a risk assessment model) the patient's lifetime risk is 8.9% and her 10 year risk is 4.2%. According to the ACR, ACS, and NCCN guidelines, an annual breast MRI exam along with mammogram is recommended if the patient's lifetime risk is 20% or greater. This exam was interpreted at Station ID: [id number]. NOTE: For mammograms, a report in lay terms will be sent to the patient. Approximately 15% of breast malignancies will not be visualized mammographically. In the management of a palpable breast mass, a negative mammogram must not discourage biopsy of a clinically suspicious lesion. Electronically Signed By: Donny griffin/pio:06/04/2022 12:59:44 letter sent: Normal Exam ACR BI-RADS Category 1: Negative [id number]
== END ==
PROVIDERS: PCP Family Medicine; Referring Provider Family Medicine; Visit Provider Family Medicine
DX: Z12.31 Encounter for screening mammogram for malignant neoplasm of breast (principal); Z80.3 Family history of malignant neoplasm of breast
CPT/HCPCS: 77063; 77067

== ENCOUNTER → 2025-01-14 13:39 | Outpatient (CLI) | payer MEDICARE, SELFPAY ==
--- NOTE | 2025-01-14 13:48 | DI.RAD.S_ITS ---
PROCEDURE: XR KNEE 2V WB LEFT INDICATIONS: Pain in left knee TECHNIQUE: 3 views of the knee were acquired. COMPARISON: None. FINDINGS: Bones: No fractures or dislocations. Mild to moderate medial and lateral tibiofemoral and patellofemoral compartment narrowing with associated osteophytosis. No suspicious bony lesions. Soft tissues: No joint effusion. No suspicious soft tissue calcifications. IMPRESSION: KL grade 2 tricompartmental osteoarthritis without evidence of acute bony abnormality or significant effusion. Dictated by: Mehran Staples M.D. on 01/18/2025 at 4:14 Approved by: Mehran Staples M.D. on 01/18/2025 at 4:15
== END ==
LOC: RAD 13:44
PROVIDERS: PCP Family Medicine; Referring Provider Chiropractor; Visit Provider Chiropractor
DX: M17.12 Unilateral primary osteoarthritis, left knee (principal); M25.562 Pain in left knee
CPT/HCPCS: 73564